=== PATIENT | female | born 1995 | race Caucasian/White ===

== ENCOUNTER → 2019-10-19 14:47 | Outpatient (BNVA) | payer MEDICAID, SELFPAY | PROVIDERS: Visit Provider Nurse Practitioner Family | DX: R39.9 Unspecified symptoms and signs involving the genitourinary system (principal); N30.00 Acute cystitis without hematuria | CPT/HCPCS: 80053; 81003 ==

== ENCOUNTER 2020-08-14 09:51 | Emergency (ER) | payer SELFPAY ==
[2020-08-14 10:09] VITALS: BP 149/94; PULSE 85; RESP 14; TEMP 36.3; O2SAT 96; BMI 43.2
--- NOTE | 2020-08-14 10:18 | ED_ITS ---
HPI - Abdominal Pain General: Chief Complaint: Abdominal Pain Stated Complaint: ABD PAIN Time Seen by Provider: 08/14/20 09:56 History of Present Illness: HPI narrative: Patient is a 25-year-old female comes to the ED with abdominal pain, nausea and vomiting. Patient says symptoms started at approximately 630 this morning. Patient says she has similar symptoms in the past and has been told that she has gallstones. She says that the right upper quadrant abdominal pain usually occurs after eating fatty or greasy foods. She says the abdominal pain is located in the right upper quadrant. She rates the pain currently a 9 out of 10. She has had 2 episodes of emesis today. Patient says she has diarrhea as well but states that that is a chronic issue. Denies any blood in stool or blood in emesis. Denies fever, chills, chest pain or shortness of breath. Associated Symptoms: Reports diarrhea (chronic issue, no acute change.), nausea and vomiting; Denies chills, constipation, dysuria, fever(s), hematochezia and hematuria Related Data: Date of Last Menstrual Period: 07/10/20 Review of Systems Const: Denies: fever(s), chills or fatigue Eyes: Denies: change in vision or eye discomfort ENMT: Denies: throat pain, odynophagia, nasal discharge or nasal congestion Card: Denies: chest pain, palpitations, edema, swelling of feet/ankles, dyspnea on exertion or orthopnea Resp: Denies: dyspnea, productive cough or non-productive cough GI: Reports: abdominal pain, nausea, vomiting and diarrhea (chronic issue, no acute change.); Denies: constipation or hematochezia : Denies: flank pain, dysuria or hematuria Musc: Denies: neck pain, back pain or extremity swelling Skin/Breast: Denies: rash or new lesions Neuro: Denies: headache(s), numbness in extremities or weakness in extremities [facility] ED Female Reproductive History: Date of last menstrual period: 07/10/20 Physical Exam Const: COMMON NORMALS: patient oriented x3 and alert GENERAL APPEARANCE: cooperative and comfortable NUTRITIONAL APPEARANCE: obese HENMT: COMMON NORMALS: normocephalic HEAD & SCALP: normocephalic MOUTH: Normal oral and palatal mucosa present THROAT: posterior oropharynx normal and uvula midline Neck/C-Spine: COMMON NORMALS: supple GENERAL: Yes normal visual inspection Resp: COMMON NORMALS: normal respiratory effort, No retractions, No use of accessory muscles and clear to auscultation bilaterally AUSCULTATION: clear to auscultation bilaterally Cardio: COMMON NORMALS: regular rate, regular rhythm, S1 normal heart sound present, S2 normal heart sound present, No gallops present (Cardio), No clicks present (Cardio), No murmurs present (Cardio) and Peripheral pulses 2+ throughout RATE: regular rate RHYTHM: regular rhythm HEART SOUNDS: S1 normal heart sound present and S2 normal heart sound present PERIPHERAL PULSES: Peripheral pulses 2+ throughout GI: COMMON NORMALS: Normal to inspection, nondistended, normoactive bowel sounds present, Soft to palpation and no masses INSPECTION: Yes central obesity PALPATION: Yes Soft to palpation and Yes Tenderness to palpation present (GI) Details: RUQ (positive campo sign.) : COMMON NORMALS: Yes no CVA tenderness BLADDER/KIDNEY EXAM: Yes no CVA tenderness Back/Pelvis: COMMON NORMALS: no CVA tenderness Extremity: COMMON NORMALS: normal to inspection and no pedal edema Neuro: COMMON NORMALS: patient oriented x3 SENSORIUM/ORIENTATION: Yes alert GAIT: Yes Normal gait present Skin: GENERAL SKIN EXAM: dry skin Course Reevaluation(s): Reevaluation #1: Patient's pain and nausea were controlled here in the ED after she was given IV fluids, Zofran and morphine. Vital Signs: Vital signs: Vital Signs Temperature 97.3 F L 08/14/20 10:09 Pulse Rate 73 08/14/20 12:35 Respiratory Rate 20 H 08/14/20 11:32 Blood Pressure 146/95 08/14/20 12:35 Pulse Oximetry 97 08/14/20 12:35 MDM - Abdominal Pain MDM Narrative: Medical decision making narrative: Patient is a 25-year-old female comes to the ED with abdominal pain in the right upper quadrant. Patient has a history of gallstones and similar episodes of pain. Upon exam patient appears nontoxic and has right upper quadrant tenderness with positive Campo sign. White blood cell count 16.7 and rest of CBC, CMP, UA and lipase were unremarkable. hCG negative. EKG showed normal sinus rhythm with no ST segment elevation or depression noted. Ultrasound of right upper quadrant showed some g allstones, but no other signs of cholecystitis. CBD was normal. Patient also had fatty infiltrates and enlarged liver. I placed an order with case management for patient to be referred to general surgery. Patient's pain and nausea were controlled with IV fluids, morphine and Zofran. She was stable for discharge patient was diagnosed with biliary colic and cholelithiasis. I sent her home with prescription for Zofran and a written prescription of hydrocodone 5/325 mg quantity 8 tablets. She was told the case planner will contact her in the next several days to set up an appoint with general surgery. Return to ED precautions given. Patient understood and agree with plan. Lab Data: Attestation: I reviewed the patient's lab results. Labs: Lab Results 08/14/20 08/14/20 08/14/20 Range/Units 10:54 10:54 10:54 WBC 16.7 H (4.0-10.0) 10^3/ uL RBC 4.87 (4.1-5.3) 10^6/u L Hgb 13.3 (11.5-15.3) g/dL Hct 42.2 (37.0-47.0) % MCV 86.7 (81-99) fL MCH 27.3 L (28.0-34.0) pg MCHC 31.5 (30.0-36.0) g/dL RDW 14.6 (12.1-15.1) % Plt Count 361 (130-400) 10^3/c mm MPV 10.5 H (7.4-10.4) fL Neut % (Auto) 71.1 % Lymph % (Auto) 19.3 % [place] % (Auto) 5.5 % Eos % (Auto) 2.7 % Baso % (Auto) 0.5 % Neut # (Auto) 11.86 H (1.8-7.7) 10^3/u L Lymph # (Auto) 3.2 (0.8-4.8) 10^3/u L [place] # (Auto) 0.9 (0.2-0.9) 10^3/u L Eos # (Auto) 0.5 (0.0-0.8) 10^3/u L Baso # (Auto) 0.1 (0.0-0.1) 10^3/u L Nucleated RBC % (a uto) 0 % Nucleated RBCs # 0.0 /100WBC Sodium 137 (136-145) mmol/L Potassium 4.4 (3.5-5.1) mmol/L Chloride 103 (98-107) mmol/L Carbon Dioxide 24 (22-29) mmol/L Anion Gap 14.4 (5-19) BUN 10 (6-20) mg/dL Creatinine 0.4 L (0.5-0.9) mg/dL GFR Calculation 192.9 H (90-130) mL/min Glucose 96 (65-115) mg/dL Calculated Osmolal ity 283 L (285-295) mOsm/k g Calcium 8.8 (8.5-10.5) mg/dL Total Bilirubin 0.3 (0.15-1.2) mg/dL AST 23 (0-32) U/L ALT 23 (0-33) U/L Alkaline Phosphata se 86 (35-105) IU/L Total Protein 7.4 (6.6-8.7) g/dL Albumin 3.8 (3.5-5.2) g/dL Globulin 3.6 (1.3-4.6) g/dL Lipase 20 (13-60) U/L HCG, Qual Negative (Negative) Urine Color (Yellow) Urine Appearance (CLEAR) Urine pH (5-7) Ur Specific Gravit y (1.005-1.030) Urine Protein (Negative) Urine Glucose (UA) (Normal) Urine Ketones (Negative) Urine Blood (Negative) Urine Nitrate (Negative) Urine Bilirubin (Negative) Urine Urobilinogen (Negative) mg/dL Ur Leukocyte Vanessa ase (Negative) Urine RBC (0-2) /hpf Urine WBC (0-5) /hpf Ur Squamous Epith Cells (0-5) /hpf Amorphous Sediment Urine Bacteria (NONE) /hpf Urine Mucus /hpf 08/14/ Range/Units 10:54 WBC (4.0-10.0) 10^3/ uL RBC (4.1-5.3) 10^6/u L Hgb (11.5-15.3) g/dL Hct (37.0-47.0) % MCV (81-99) fL MCH (28.0-34.0) pg MCHC (30.0-36.0) g/dL RDW (12.1-15.1) % Plt Count (130-400) 10^3/c mm MPV (7.4-10.4) fL Neut % (Auto) % Lymph % (Auto) % [place] % (Auto) % Eos % (Auto) % Baso % (Auto) % Neut # (Auto) (1.8-7.7) 10^3/u L Lymph # (Auto) (0.8-4.8) 10^3/u L [place] # (Auto) (0.2-0.9) 10^3/u L Eos # (Auto) (0.0-0.8) 10^3/u L Baso # (Auto) (0.0-0.1) 10^3/u L Nucleated RBC % (a uto) % Nucleated RBCs # /100WBC Sodium (136-145) mmol/L Potassium (3.5-5.1) mmol/L Chloride (98-107) mmol/L Carbon Dioxide (22-29) mmol/L Anion Gap (5-19) BUN (6-20) mg/dL Creatinine (0.5-0.9) mg/dL GFR Calculation (90-130) mL/min Glucose (65-115) mg/dL Calculated Osmolal ity (285-295) mOsm/k g Calcium (8.5-10.5) mg/dL Total Bilirubin (0.15-1.2) mg/dL AST (0-32) U/L ALT (0-33) U/L Alkaline Phosphata se (35-105) IU/L Total Protein (6.6-8.7) g/dL Albumin (3.5-5.2) g/dL Globulin (1.3-4.6) g/dL Lipase (13-60) U/L HCG, Qual (Negative) Urine Color Yellow (Yellow) Urine Appearance Clear (CLEAR) Urine pH 6 (5-7) Ur Specific Gravit y 1.010 (1.005-1.030) Urine Protein Neg (Negative) Urine Glucose (UA) Norm (Normal) Urine Ketones Negative (Negative) Urine Blood 2+ H (Negative) Urine Nitrate Negative (Negative) Urine Bilirubin Neg (Negative) Urine Urobilinogen Norm (Negative) mg/dL Ur Leukocyte Vanessa ase Negative (Negative) Urine RBC None (0-2) /hpf Urine WBC None (0-5) /hpf Ur Squamous Epith Cells Rare (0-5) /hpf Amorphous Sediment Not Reportable Urine Bacteria Trace (NONE) /hpf Urine Mucus Trace /hpf Imaging Data ^: US: Attestation: I personally reviewed and interpreted this imaging study as follows: Radiologist's impression: [address] [place] [address] Ultrasound Report Signed Patient: Heaven Fierro Unit #: [id number] : 1995 Age/Sex: 25 / F ADM Date: 08/14/20 Loc: ER Room/Bed: Attending Dr: Ordering Provider/Ordering MD: Dell Ortiz Date of Service: 08/14/20 Procedure(s): US gall bladder 71191 Accession Number(s): [id number] Report Number: [id number] PROCEDURE INFORMATION: Exam: US Abdomen, Limited; Right Upper Quadrant Exam date and time: 08/14/2020 10:26 AM Age: 25 years old Clinical indication: Abdominal pain; Additional info: Ruq tenderness with n/v TECHNIQUE: Imaging protocol: US abdomen. Real time ultrasound with image documentation. Limited exam focused on the right upper quadrant. COMPARISON: No relevant prior studies available. FINDINGS: Liver: Fatty infiltration of the enlarged liver. Gallbladder: Cholelithiasis and technologist reported positive sonographic Campo sign. No gallbladder wall edema or pericholecystic fluid. Common bile duct: Normal caliber of the incompletely visualized common bile duct measuring 5 mm in diameter. Pancreas: Partial obscuration of the pancreas by bowel gas. Right kidney: Normal right renal morphology. No hydronephrosis. Aorta: Normal caliber of the visualized proximal/mid abdominal aorta without obscuration of the distal abdominal aorta by bowel gas. Inferior vena cava: Unremarkable IVC. US/US gall bladder [id number] IMPRESSION: 1. Fatty infiltration of the enlarged liver. 2. Cholelithiasis and technologist reported positive sonographic Campo sign. Dictated By: Eber Mason MD Signed By: Eber Mason MD Signed Date/Time: 08/14/20 1212 DD/ 1211 EKG Data ^: EKG 1: Attestation: I personally reviewed and interpreted this EKG as follows: EKG interpretation date: 08/14/20 Interpretation: Normal sinus rhythm, 72 bpm, no ST segment elevation or depression seen. Discharge Plan Discharge Patient Disposition: Home Clinical Impression: Biliary colic Cholelithiasis Qualifiers: Cholelithiasis location: gallbladder Cholecystitis presence: without cholecystitis Biliary obstruction: without biliary obstruction Qualified Code(s): K80.20 - Calculus of gallbladder without cholecystitis without obst ruction Condition: Stable Prescriptions: New Zofran 4 mg tablet 4 mg PO Q8H PRN (Reason: nausea and vomiting) Qty: 15 RF: 0 No Action ibuprofen 200 mg Tablet 600 mg PO PRN RF: 0 Discharge Orders: Discharge ED (Routine); Ordered 08/14/20 Ordered By: Dell Ortiz Referrals: Dayna Fernandez FNP [Primary Care Provider] - Discharge Diet: Advance as tolerated Discharge Activity: Increase activity as tolerated Patient Instructions: Biliary Colic (ED), Opioid Safety Activity Restrictions/Additional Instructions: Follow-up with medical provider as directed. Case management will be contacting you in the next several days to set up an appointment with a general surgeon. Take medications as prescribed. Avoid greasy and fatty foods that cause worsening of symptoms. Start with clear liquid diet then advance as tolerated. Return to the ER or your medical provider if condition worsens. Please read and understand discharge instructions. Thank you for choosing [facility] for your healthcare needs today. Please realize this is an emergency room and that we are providing you with a medical screening exam and this may not be complete and all inclusive of all the testing and or work up that you may need to determine your ailment or severity of your illness. It is very important that you follow up as instructed or that you return to the Emergency Department should you have concerns or if your condition changes or worsens in any way. Coding Level of Care Code ED Carpet Installer Helper for Chg Fwd Exam Comprehensive
--- NOTE | 2020-08-14 10:19 | ECG_ITS ---
[facility] Test Date: 2020-08-14 Pat Name: Heaven Fierro Department: Room: Gender: Female Material Engineer: : 1995 Requested By: Dell Ortiz Order Number: [id number] Roque MD: Jeremy Dorman M.D. Measurements Intervals [place] Rate: 72 P: 13 [place]: 151 QRS: 12 QRSD: 91 T: 3 QT: 401 QTc: 441 Interpretive Statements SINUS RHYTHM No previous ECG available for comparison Electronically Signed On 08-14-2020 15:59:55 CDT by Jeremy Dorman M.D. [id number]
[2020-08-14 10:57] LABS: Basophils # 0.1 10^3/uL (0.0-0.1); Basophils % 0.5 %; Eosinophils # 0.5 10^3/uL (0.0-0.8); Eosinophils % 2.7 %; Hematocrit 42.2 % (37.0-47.0); Hemoglobin 13.3 g/dL (11.5-15.3); Lymphocytes # 3.2 10^3/uL (0.8-4.8); Lymphocytes % 19.3 %; Mean Corpuscular HGB Conc 31.5 g/dL (30.0-36.0); Mean Corpuscular Hemoglobin 27.3 pg (28.0-34.0); Mean Corpuscular Volume 86.7 fL (81-99); Mean Platelet Volume 10.5 fL (7.4-10.4); Monocytes # 0.9 10^3/uL (0.2-0.9); Monocytes % 5.5 %; Neutrophils # 11.86 10^3/uL (1.8-7.7); Neutrophils % 71.1 %; Nucleated Red Blood Cells % 0 %; Platelet Count 361 10^3/cmm (130-400); Red Blood Count 4.87 10^6/uL (4.1-5.3); Red Cell Distribution Width 14.6 % (12.1-15.1); White Blood Count 16.7 10^3/uL (4.0-10.0)
[2020-08-14 11:12] LABS: Bilirubin Urine Neg (Negative); Blood Urine 2+ (Negative); Glucose Urine UA Norm (Normal); HCG, Serum Qual Negative (Negative); Ketones Urine Negative (Negative); Leukocyte Esterase Urine Negative (Negative); Nitrate Urine Negative (Negative); Protein Urine Neg (Negative); Urine Appearance Clear (CLEAR); Urine Color Yellow (Yellow); Urobilinogen Urine Norm (Negative); pH Urine 6 (5-7)
[2020-08-14 11:21] LABS: Alanine Aminotransferase 23 U/L (0-33); Albumin Level 3.8 g/dL (3.5-5.2); Alkaline Phosphatase 86 IU/L (35-105); Anion Gap 14.4 (5-19); Aspartate Amino Transferase 23 U/L (0-32); Blood Urea Nitrogen 10 mg/dL (6-20); Calcium 8.8 mg/dL (8.5-10.5); Carbon Dioxide 24 mmol/L (22-29); Chloride 103 mmol/L (98-107); Globulin 3.6 g/dL (1.3-4.6); Glomerular Filtration Rate 192.9 mL/min (90-130); Glucose 96 mg/dL (65-115); Lipase 20 U/L (13-60); Osmolality Calculated 283 mOsm/kg (285-295); Potassium 4.4 mmol/L (3.5-5.1); Sodium 137 mmol/L (136-145); Total Bilirubin 0.3 mg/dL (0.15-1.2); Total Protein 7.4 g/dL (6.6-8.7)
[2020-08-14 11:32] VITALS: RESP 20; O2SAT 98
[2020-08-14 11:32] LABS: Bacteria Urine TRACE /hpf; Mucus Urine TRACE /hpf; Squamous Epithelial Cell Urine RARE /hpf (0-5)
[2020-08-14] MEDS: morphine 4 mg/mL SDV 1 mL IVP (11:32)
[2020-08-14 11:33] LABS: Add Urine Culture? No
[2020-08-14] MEDS: ondansetron 2 mg/ML SDV 2 mL 4 MG IVP (11:33)
[2020-08-14] MEDS: sodium chloride 0.9% 1,000 ML 999 ML IV (11:33)
[2020-08-14 12:35] VITALS: BP 146/95; PULSE 73; O2SAT 97
--- NOTE | 2020-08-16 07:40 | DCPLANNER ---
area sales manager had message to schedule a follow up appointment for patient with general surgery for biliary colic. area sales manager emailed patients information to Татьяна at [facility] General Surgery. Patients information will be printed and reviewed. Clinic will call patient with appointment information.
--- NOTE | 2020-08-25 08:06 | DCPLANNER ---
health club manager was notified by general surgery that the clinic has been unable to reach patient to schedule an appointment after several attempts. Clinic mailed patient a letter to contact office to schedule appointment if still needed.
== END 2020-08-14 12:36 | disposition home or self-care (01) ==
PROVIDERS: Emergency Provider Physician Assistant; PCP Nurse Practitioner Family
DX: K80.20 Calculus of gallbladder without cholecystitis without obstruction (principal)
CPT/HCPCS: 76705; 80053; 81001; 83690; 84703; 85025; 93005; 96361; 96374; 96375; 99284; J2270; J2405; J7030